=== PATIENT | female | born 1970 | race Two or more races ===

== ENCOUNTER 2023-07-13 11:34 | Inpatient (IN) | payer MEDICAID ==
[~2023-07-13] VITALS: Ht 160 cm; Wt 85.7 kg
[2023-07-13 12:45] LABS: HEMATOCRIT. 41.3 % (36.0-48.0); HEMOGLOBIN. 14.3 g/dL (12.0-16.0); LYMPHOCYTES % 30.9 % (20.0-50.0); MEAN CORPUSCULAR HEMOGLOBIN 31.9 pg (28.0-32.0); MEAN CORPUSCULAR HGB CONC 34.7 g/dL (31.0-37.0); MEAN CORPUSCULAR VOLUME 92.2 fL (81.0-99.0); MEAN PLATELET VOLUME 8.6 fl (7.4-10.4); MONOCYTES % 6.4 % (2.0-8.0); NEUTROPHILS % 59.7 % (40.0-76.0); PLATELET 318 x1000/uL (130-400); RED BLOOD CELL COUNT 4.48 mill/uL (4.2-5.4); RED CELL DISTRIBUTION WIDTH 12.7 % (11.6-14.6); WHITE BLOOD COUNT 9.6 x1000/uL (4.5-11.0)
[2023-07-13 12:55] LABS: ALANINE AMINOTRANSFERASE 31 IU/L (10-49); ALBUMIN 4.4 g/dL (3.2-4.8); ASPARTATE AMINOTRANSFERASE 30 IU/L (<34); BILIRUBIN TOTAL 0.9 mg/dL (0.1-1.0); CARBON DIOXIDE 26 mEq/L (21-32); CHLORIDE 108 mEq/L (98-107); CREATININE 0.6 mg/dL (0.6-1.0); GLUCOSE 102 mg/dL (70-105); POTASSIUM 4.2 mEq/L (3.5-5.1); PROTEIN TOTAL 8.1 g/dL (6.0-8.3); SODIUM 138 mEq/L (136-145); UREA NITROGEN BLOOD 10 mg/dL (9-23)
[2023-07-13] MEDS: METHOCARBAMOL 750MG TABLET PO SCH (13:00)
[2023-07-13 13:06] LABS: HCG SCREEN NEGATIVE
[2023-07-13] MEDS: MORPHINE SULFATE 4 MG/ML INJ (FOR IV/IM USE) IV ONE (13:42)
[2023-07-13] MEDS: ONDANSETRON HCL 4MG/2ML INJ IM ONE (14:12)
[2023-07-13] MEDS ORDERED: CLONIDINE 0.1MG TABLET PO PRN (15:30)
[2023-07-13] MEDS ORDERED: ACETAMINOPHEN 325MG TABLET PO PRN ×2 (15:30)
[2023-07-13] MEDS ORDERED: IPRATROPIUM/ALBUTEROL 0.5-3(2.5)MG/3ML NEB HHN PRN (15:30)
[2023-07-13 16:16] LABS: *AMPHETAMINES SCREEN URINE NEGATIVE (NEGATIVE); *BARBITURATES SCREEN URINE NEGATIVE (NEGATIVE); *BENZODIAZEPINES SCREEN URINE NEGATIVE (NEGATIVE); *COCAINE SCREEN URINE PRESUMPTIVE POSITIVE (NEGATIVE); CANNABINOID URINE SCREEN PRESUMPTIVE POSITIVE (NEGATIVE); ECSTASY MDMA SCREEN URINE NEGATIVE (NEGATIVE); METHADONE URINE SCREEN Neg (NEGATIVE); OPIATES URINE SCREEN PRESUMPTIVE POSITIVE (NEGATIVE); PHENCYCLIDINE URINE SCREEN NEGATIVE (NEGATIVE)
[2023-07-13] MEDS: HYDROCODONE/ACETAMINOPHEN 5/325MG TABLET PO PRN (17:28)
[2023-07-13] MEDS: CYCLOBENZAPRINE 10MG TABLET PO PRN (20:40)
[2023-07-14] VITALS (7 sets, daily range): BP systolic 118–136; BP diastolic 74–86; PULSE 68–82; RESP 18–20; TEMP 97.7–98.4
[2023-07-14] MEDS: DOCUSATE SODIUM 100MG CAPSULE PO PRN (09:12)
[2023-07-14] MEDS ORDERED: NALOXONE HCL 0.4MG/ML VIAL IV PRN (10:30)
[2023-07-14] MEDS: MORPHINE SULFATE 2 MG/ML CPJ (NOT FOR IM USE) IV PRN (15:22)
[2023-07-14] MEDS: ONDANSETRON HCL 4MG/2ML INJ IV PRN (15:28)
[2023-07-14] MEDS: HYDROCODONE/ACETAMINOPHEN 10/325MG TABLET PO PRN (17:40)
[2023-07-15] VITALS: BP 116/70; PULSE 75; RESP 20; TEMP 97.5
[2023-07-15 04:00] VITALS: BP_SYST 123; BP_SYST 130; BP_DIAS 76; BP_DIAS 86; PULSE 59; PULSE 73; RESP 20; TEMP 96.6; TEMP 97.9
[2023-07-15 08:00] VITALS: BP 127/80; PULSE 69; RESP 18; TEMP 97.4
[2023-07-15 11:50] VITALS: BP 121/76; PULSE 71; RESP 18; TEMP 97.2
[2023-07-15 16:00] VITALS: BP 120/71; PULSE 70; RESP 18; TEMP 97
[2023-07-15] MEDS: POLYETHYLENE GLYCOL 3350 (17GM) 1 DOSE PACK PO SCH (17:33)
[2023-07-15 19:41] LABS: CREATINE KINASE 77 IU/L (34-145)
[2023-07-15 20:00] VITALS: BP 157/90; PULSE 77; RESP 17; TEMP 98
[2023-07-15] MEDS: KETOROLAC 15MG/ML VIAL IV PRN (21:27)
[2023-07-16] VITALS: BP 156/68; PULSE 75; RESP 20; TEMP 97.7
[2023-07-16 04:00] VITALS: BP 115/76; PULSE 68; RESP 19; TEMP 97
[2023-07-16 08:00] VITALS: BP 116/81; PULSE 70; RESP 18; TEMP 97.5
[2023-07-16] MEDS: LIDOCAINE 5% PATCH TOP SCH (10:26)
[2023-07-16 11:39] LABS: VITAMIN B12 SERUM 445 pg/mL (211-911)
[2023-07-16 12:00] VITALS: BP 118/78; PULSE 68; RESP 18; TEMP 97.6
[2023-07-16] MEDS: DEXAMETHASONE 4MG/ML 1ML VIAL IV SCH (14:00)
[2023-07-16 16:00] VITALS: BP 114/76; PULSE 70; RESP 18; TEMP 97.9
[2023-07-16] MEDS: DICLOFENAC SODIUM 1% GEL 50GM TOP SCH (17:00)
[2023-07-16 20:00] VITALS: BP 103/48; PULSE 88; RESP 18; TEMP 95.5
[2023-07-17] VITALS: BP 127/82; PULSE 86; RESP 19; TEMP 97.9
[2023-07-17 04:00] VITALS: BP 119/75; PULSE 83; RESP 18; TEMP 97.5
[2023-07-17 07:18] LABS: BASOPHILS % 0.1 % (0.0-2.0); HEMOGLOBIN. 15.9 g/dL (12.0-16.0); LYMPHOCYTES % 11.9 % (20.0-50.0); MEAN CORPUSCULAR HEMOGLOBIN 31.6 pg (28.0-32.0); MEAN CORPUSCULAR HGB CONC 34.6 g/dL (31.0-37.0); MEAN CORPUSCULAR VOLUME 91.4 fL (81.0-99.0); MEAN PLATELET VOLUME 8.7 fl (7.4-10.4); MONOCYTES % 1.4 % (2.0-8.0); NEUTROPHILS % 86.6 % (40.0-76.0); PLATELET 370 x1000/uL (130-400); RED BLOOD CELL COUNT 5.03 mill/uL (4.2-5.4); RED CELL DISTRIBUTION WIDTH 12.3 % (11.6-14.6); WHITE BLOOD COUNT 11.9 x1000/uL (4.5-11.0)
[2023-07-17 07:29] LABS: CARBON DIOXIDE 22 mEq/L (21-32); CHLORIDE 106 mEq/L (98-107); POTASSIUM 4.6 mEq/L (3.5-5.1); SODIUM 135 mEq/L (136-145)
[2023-07-17 07:30] LABS: CALCIUM 9.6 mg/dL (8.7-10.4)
[2023-07-17 07:34] LABS: CREATININE 0.6 mg/dL (0.6-1.0)
[2023-07-17 07:35] LABS: GLUCOSE 184 mg/dL (70-105); UREA NITROGEN BLOOD 11 mg/dL (9-23)
[2023-07-17 07:37] LABS: THYROID STIMULATING HORMONE 2.02 uIU/mL (0.55-4.78)
[2023-07-17 07:38] LABS: FOLIC ACID (FOLATE) SERUM > 20.00 ng/mL (>5.38)
[2023-07-17 12:00] VITALS: BP 119/73; PULSE 88; RESP 17; TEMP 96.3
[2023-07-17] MEDS ORDERED: HYDR-4001 MT (12:17)
[2023-07-17] MEDS ORDERED: DEXA4TAB MT (12:17)
[2023-07-17 13:09] VITALS: BP 122/78; PULSE 78; TEMP 98.2; O2SAT 99
== END 2023-07-17 15:37 | disposition home or self-care (01) | DRG 347 ==
LOC: ER 11:34 → EDBEDREQ 12:28 → 5WST 14:00 → EDBEDREQ 14:04 → 6EST 07-14 02:38
PROVIDERS: ADMIT Family Medicine Adult Medicine; ATTEND Family Medicine Adult Medicine
DX: M48.061 Spinal stenosis, lumbar region without neurogenic claudication (principal); E66.9 Obesity, unspecified; I10 Essential (primary) hypertension; J45.909 Unspecified asthma, uncomplicated; M51.26 Other intervertebral disc displacement, lumbar region; Z68.33 Body mass index [BMI] 33.0-33.9, adult; F14.90 Cocaine use, unspecified, uncomplicated; G43.909 Migraine, unspecified, not intractable, without status migrainosus; M16.0 Bilateral primary osteoarthritis of hip; R53.81 Other malaise; M70.62 Trochanteric bursitis, left hip; M51.27 Other intervertebral disc displacement, lumbosacral region; Z88.0 Allergy status to penicillin
CPT/HCPCS: 36415; 72148; 72192; 73700; 73721; 80048; 80053; 80305; 82306; 82550; 82607; 82746; 84443; 84703; 85025; 85651; 97162; 99285; J1100; J1885; J2270; J2405

== ENCOUNTER 2025-03-04 12:16 | Emergency (ER) | payer MEDICAID ==
[~2025-03-04] VITALS: Ht 162.6 cm; Wt 73.0 kg
[~2025-03-04 12:16] MED LIST: DEXA4TAB MT; HYDR-4001 MT
[2025-03-04 12:21] VITALS: O2SAT 99
[2025-03-04] MEDS: KETOROLAC 30MG/ML VIAL IM ONE (12:50)
[2025-03-04] MEDS: HYDROCODONE/ACETAMINOPHEN 5/325MG TABLET PO ONE (12:50)
[2025-03-04] MEDS: DEXAMETHASONE 4MG/ML 1ML VIAL IM ONE (12:50)
[2025-03-04] MEDS ORDERED: METH4TAB95 MT (15:35)
[2025-03-04] MEDS ORDERED: IBUP-2030 MT (15:35)
[2025-03-04 15:50] VITALS: BP 132/79; PULSE 94; RESP 17; TEMP 37.2; O2SAT 100
[2025-03-05] MEDS ORDERED: DEXAMETHASONE 4MG/ML 1ML VIAL ONE (11:17)
[2025-03-05] MEDS ORDERED: SUCCINYLCHOLINE CHLORIDE 200MG/10ML IV ONE (11:17)
[2025-03-05] MEDS ORDERED: CEFAZOLIN SODIUM 1000MG/VIAL ONE (11:17)
[2025-03-05] MEDS ORDERED: ONDANSETRON HCL 4MG/2ML INJ ONE (11:17)
[2025-03-05] MEDS ORDERED: ROCURONIUM BROMIDE 10MG/ML VIAL 5ML IV ONE (11:18)
[2025-03-05] MEDS ORDERED: MIDAZOLAM HCL 2 MG/2 ML VIAL ONE (11:18)
[2025-03-05] MEDS ORDERED: FENTANYL CITRATE/PF 50MCG/ML 2ML VIAL ONE (11:18)
[2025-03-05] MEDS ORDERED: HYDROMORPHONE HCL/PF 2MG/ML INJ ONE ×2 (12:40→14:24)
[2025-03-05] MEDS ORDERED: PROPOFOL 200MG/20ML VIAL IV ONE (12:50)
[2025-03-05] MEDS ORDERED: HYDRALAZINE 20MG/ML VIAL ONE (14:24)
== END 2025-03-04 16:05 | disposition home or self-care (01) ==
LOC: ER 12:52
DX: M47.26 Other spondylosis with radiculopathy, lumbar region (principal)
CPT/HCPCS: 99285; 72131; 96372; J1885; J3010; J0690; J1100; J0360; J2250; J2405; J2704; J3490; J0330; J1171